=== PATIENT | male | born 1955 | race Caucasian/White ===

== ENCOUNTER 2018-04-23 10:23 | Outpatient (CLI) | payer BC ==
--- NOTE | 2018-04-23 12:24 | ULT ---
HEPATIC ULTRASOUND WITH HEPATIC DOPPLER EVALUATION: DATE: 04/23/2018. HISTORY: Abnormal laboratory values. History of hepatitis B and C. COMPARISON: None available. FINDINGS: The liver demonstrates normal sonographic appearance. No focal hepatic mass is visualized. The visualized portions of the IVC, gallbladder, and spleen demonstrate a normal sonographic appearan ce. The right kidney where visualized has a normal appearance. The common duct measures 0.3 cm in diameter, which his within normal limits. HEPATIC DOPPLER EVALUATION WITH SPECTRAL ANALYSIS AND COLOR FLOW EVALUATION: There is normal directional flow seen within the portal, hepatic, and splenic veins. Arterial wavefo ovidio are present within the splenic and hepatic arteries. IMPRESSION: 1. No gallbladder calculi are seen. 2. Normal appearance of the liver, and no focal hepatic mass is seen on this exam. 3. Normal directional flow was present within the portal, hepatic, and splenic veins. POS: [facility]
== END 2018-04-23 10:24 | disposition home or self-care (01) ==
LOC: BICULT 10:23
PROVIDERS: ATTEND Internal Medicine Gastroenterology
DX: R79.89 Other specified abnormal findings of blood chemistry (principal); R76.8 Other specified abnormal immunological findings in serum
CPT/HCPCS: 76705